=== PATIENT | male | born 1955 | race Caucasian/White ===

== ENCOUNTER 2024-05-14 13:46 | Day surgery (SDC) | payer MEDICARE ==
[~2024-05-14] VITALS: Ht 177.8 cm; Wt 83.0 kg
[2024-05-14] VITALS (10 sets, daily range): BP systolic 125–154; BP diastolic 52–64; PULSE 48–61; TEMP 97.1–98.4
[~2024-05-14 13:46] MED LIST: Morphine 4 MG/ML VIAL IV ONE; Morphine 4 MG/ML VIAL IV PRN; NS 1,000 ML IV SCH; Ondansetron 4 MG/2 ML VIAL IV PRN
[2024-05-14] MEDS ORDERED: LR 1,000 ML IV SCH (14:00)
[2024-05-14] MEDS ORDERED: NORVASC 10MG10 MG PO (14:35)
[2024-05-14] MEDS ORDERED: PRINZIDE 12.5 M1 TAB PO (14:36)
[2024-05-14] MEDS ORDERED: FLOMAX 0.40.4 MG/CAP PO (14:36)
[2024-05-14] MEDS ORDERED: Ketorolac 15 MG/ML VIAL IV SCH (15:00)
[2024-05-14 15:53] LABS: BASO % 0.2 % (0.0-2.0); EOS % 0.3 % (0.0-4.0); GRAN # 9.9 K/mm3 (1.4-6.5); GRAN % 82.3 % (42.2-75.2); HEMATOCRIT 41.3 % (42.0-52.0); LYMPH # 1.2 K/mm3 (1.2-3.4); MEAN CELL VOLUME 95 fl (80.0-100.0); MEAN CORPUSCULAR HEMOGLOBIN 32 pg (27-31); MEAN CORPUSCULAR HGB CONC 34 g/dl (33.0-37.0); MEAN PLATELET VOLUME 9.5 fl (7.4-10.4); MONO # 0.8 K/mm3 (0.1-0.6); MONO % 6.8 % (1.7-9.3); PLATELET COUNT 252 K/mm3 (130-400); RED BLOOD COUNT 4.37 M/mm3 (4.20-5.60); REDCELL DISTRIBUTION WIDTH-CV 13.2 % (11.5-14.5)
[2024-05-14 16:32] LABS: ALBUMIN 3.8 g/dL (3.4-4.8); BILIRUBIN,TOTAL 1.3 mg/dL (0.2-1.2); CREATININE, serum 0.78 mg/dL (0.72-1.25); MAGNESIUM 2.1 mg/dL (1.6-2.6); POTASSIUM 3.8 mEq/L (3.5-4.5); TOTAL PROTEIN 7.2 g/dl (6.2-8.1)
[2024-05-14] MEDS ORDERED: fentaNYL 50 MCG/ML 2 ML VIAL ONE (17:39)
[2024-05-14] MEDS ORDERED: Lidocaine PF 2% (20 MG/ML) 5 ML VIAL ONE (17:54)
[2024-05-14] MEDS ORDERED: Rocuronium 50 MG/5 ML Multi-Dose VIAL ONE (17:54)
[2024-05-14] MEDS ORDERED: Succinylcholine PF 200 MG/10 ML SYRINGE IV ONE (17:56)
[2024-05-14] MEDS ORDERED: Ondansetron 4 MG/2 ML VIAL ONE (17:58)
[2024-05-14] MEDS ORDERED: dexAMETHasone 10 MG/ML VIAL ONE (17:58)
[2024-05-14] MEDS ORDERED: Acetaminophen 325 MG TAB PO PRN (18:00)
[2024-05-14] MEDS ORDERED: Ondansetron 4 MG/2 ML VIAL IV PRN (18:00)
[2024-05-14] MEDS ORDERED: Hyoscyamine 0.125 MG Sublingual TAB SL PRN (18:00)
[2024-05-14] MEDS ORDERED: Naloxone 0.4 MG/ML VIAL IV PRN (18:00)
[2024-05-14] MEDS ORDERED: Lidocaine 2% (20 MG/ML) 20 ML UROJET UR ONE (18:39)
[2024-05-14] MEDS ORDERED: Iohexol 300 - 10 ML VIAL URETER-R ONE (18:40)
[2024-05-14] MEDS ORDERED: Acetaminophen 500 MG TAB PO SCH (18:48)
--- NOTE | 2024-05-14 19:41 | NUR ---
RECEIVED REPORT FROM CINDA STONE CRUSHER OPERATOR, PATIENT ARRIVED TO ROOM 332 FOR ADMIT POST OP. PATIENT DENIES CHEST PAIN/SHORTNESS OF BREATH/NAUSEA AT TIME OF ADMIT.
[2024-05-15] VITALS (7 sets, daily range): BP systolic 120–137; BP diastolic 62–75; PULSE 51–59; TEMP 97.6–98.2
--- NOTE | 2024-05-15 07:05 | NUR ---
appears to be dozing, awakens easily, bedside shift report received from SHAHAB Roca
--- NOTE | 2024-05-15 07:10 | NUR ---
Change of shift report given to day shift nurseMolly. Patient resting in bed with CBI running at slow/medium rate with clear output in DD tubing. Patient reported no needs or concerns at time of report.
--- NOTE | 2024-05-15 07:35 | NUR ---
awake resting in bed, full assessment completed, see interventions for further info, denies needs at this time
[2024-05-15] MEDS ORDERED: HYDROCHLOROTHIAZIDE 12.5 MG PO SCH (09:00)
[2024-05-15] MEDS ORDERED: LISINOPRIL 10 MG PO SCH (09:00)
[2024-05-15] MEDS ORDERED: amLODIPine 10 MG TAB PO SCH (09:00)
--- NOTE | 2024-05-15 09:00 | NUR ---
BOAZ Santa here and given verbal order to remove dixon, patient will order breakfast now
--- NOTE | 2024-05-15 09:24 | NUR ---
Initial visit; Patient thanked Supervisor [employer] for looking in on him and offering God's blessings, letting him know who she is. Patient said he is doing well and has no spiritual needs at this time but thanks for stopping.
--- NOTE | 2024-05-15 10:10 | NUR ---
dixon cath discontinued, tolerated well, explained the use of urinal and to call fter every void, verbalizes understanding, at bedside
--- NOTE | 2024-05-15 11:00 | NUR ---
has voided 3 times, urine is light pink and clearing with each void, denies needs
--- NOTE | 2024-05-15 11:50 | NUR ---
has voided again, will plan discharge after lunch
--- NOTE | 2024-05-15 12:45 | NUR ---
discharge instructions given to patient and his , verbalizes understanding
--- NOTE | 2024-05-15 12:56 | NUR ---
discharged per WC
--- NOTE | 2024-05-15 13:20 | NUR ---
XU met with patient and to complete initial assessment for discharge planning. Patient verified he lives at home with Oksana in [place]. patient denies having completed a DPOA and declines to complete one at this time. Patient sees BOAZ Andino as his PCP and uses [facility]. He denies having any DME. Plan is for patient to return home, Discharge plan: Home
== END 2024-05-15 12:56 | disposition home or self-care (01) ==
LOC: SDCO 13:46 → SURG 19:40 → SDCO 05-15 12:56
DX: N20.2 Calculus of kidney with calculus of ureter (principal); N21.0 Calculus in bladder; K21.9 Gastro-esophageal reflux disease without esophagitis; R00.1 Bradycardia, unspecified; I10 Essential (primary) hypertension; Z79.899 Other long term (current) drug therapy; Z87.891 Personal history of nicotine dependence
CPT/HCPCS: OP; C1769; C1894; C2617; J1100; J1885; J2405; J2704; J3010; J7030; Q9967